=== PATIENT | female | born 1975 | race Caucasian/White ===

== ENCOUNTER 2021-09-11 15:42 | Emergency (ER) | payer OTHER ==
[2021-09-11] MEDS ORDERED: Iopamidol 612 MG/ML 50 ML SDV IVPUSH ONE (16:35)
[2021-09-11] MEDS ORDERED: Iopamidol 612 MG/ML 100 ML Bottle IVPUSH ONE (16:35)
[2021-09-11] MEDS ORDERED: Sodium Chloride 0.9% 10 ML Syringe FLUSH ONE (16:35)
[2021-09-11 16:42] LABS: ESTIMATED GFR 79 mL/min (>60)
[2021-09-11] MEDS ORDERED: Diphtheria,Pertussis(Acell),Tetanus Vaccine 0.5 ML Syringe IM ONE (16:44)
[2021-09-11] MEDS ORDERED: Potassium Chloride 20 MEQ Tab.ER PO ONE (17:45)
== END 2021-09-11 18:14 | disposition home or self-care (01) ==
LOC: JD.ED 15:42
DX: S16.1XXA Strain of muscle, fascia and tendon at neck level, initial encounter (principal); S29.012A Strain of muscle and tendon of back wall of thorax, initial encounter; Z23 Encounter for immunization; Z88.1 Allergy status to other antibiotic agents; Z88.2 Allergy status to sulfonamides; Z79.899 Other long term (current) drug therapy; Z90.710 Acquired absence of both cervix and uterus; V49.40XA Driver injured in collision with unspecified motor vehicles in traffic accident, initial encounter; Y92.410 Unspecified street and highway as the place of occurrence of the external cause
CPT/HCPCS: 36415; 71260; 72125; 74177; 80053; 85025; 90471; 90715; 99284; A9270; J3490; Q9967